=== PATIENT | male | born 1960 | race Caucasian/White ===

== ENCOUNTER 2016-10-10 23:07 | Emergency (ER) | payer OTHER ==
[~2016-10-10] VITALS: Wt 56.0 kg
[2016-10-10 23:12] VITALS: Wt 56.0 kg
[2016-10-10] MEDS ORDERED: ONDANSETRON 4 MG INJ IV STA (23:35)
[2016-10-10] MEDS ORDERED: SOD CHLORIDE 0.9% 1,000 ML IV STA (23:35)
[2016-10-10] MEDS ORDERED: FAMOTIDINE 20 MG INJ IV STA (23:35)
[2016-10-10] MEDS ORDERED: morphine 4 MG/ML VIAL IV STA (23:35)
[2016-10-11 00:19] LABS: BASOPHILS % 0.4 % (0.0-2.0); EOSINOPHILS % 0.1 % (0.0-7.0); HEMATOCRIT 34.3 % (42.0-52.0); HEMOGLOBIN 11.9 g/dl (14.0-18.0); LYMPHOCYTES # 1.1 10^3/ul (0.8-2.9); LYMPHOCYTES % 8.7 % (15.0-51.0); MEAN CORPUSCULAR HEMOGLOBIN 32.8 pg (29.0-33.0); MEAN CORPUSCULAR HGB CONC 34.8 g/dl (32.0-37.0); MEAN CORPUSCULAR VOLUME 94.2 fl (82.0-101.0); MEAN PLATELET VOLUME 7.9 fl (7.4-10.4); MONOCYTE # 0.9 10^3/ul (0.3-0.9); MONOCYTES % 6.8 % (0.0-11.0); NEUTROPHIL # 10.6 10^3/ul (1.6-7.5); PLATELET COUNT 252 10^3/UL (140-440); RED BLOOD COUNT 3.64 10^6/ul (4.70-6.10); RED CELL DISTRIBUTION WIDTH 12.4 % (11.5-14.5); UNCORRECTED WBC 12.6 10^3/ul (4.8-10.8); WHITE BLOOD COUNT 12.6 10^3/ul (4.8-10.8)
[2016-10-11 00:21] LABS: CONDITION 1
[2016-10-11 00:34] LABS: ALBUMIN 3.5 g/dl (3.3-4.9)
[2016-10-11 00:35] LABS: POTASSIUM 3.7 mmol/L (3.5-5.1)
[2016-10-11 00:36] LABS: CREATININE 1.21 mg/dl (0.61-1.24)
[2016-10-11 00:37] LABS: ALBUMIN/GLOBULIN RATIO 1.02; BILIRUBIN,INDIRECT 0.5 mg/dl (0-1.1); BILIRUBIN,TOTAL 0.5 mg/dl (0.2-1.3); CALCIUM 8.1 mg/dl (8.4-10.2); TOTAL PROTEIN 6.9 g/dl (6.1-8.1)
[2016-10-11 00:47] LABS: ADD UMIC YES; URINE BILIRUBIN (Dip) NEGATIVE (NEGATIVE); URINE BLOOD (Dip) 2+ (NEGATIVE); URINE COLOR LT. YELLOW (YELLOW); URINE GLUCOSE (Dip) NEGATIVE (NEGATIVE); URINE KETONES (Dip) TRACE (NEGATIVE); URINE LEUKOCYTE ESTERASE (Dip) 2+ (NEGATIVE); URINE NITRITE (Dip) POSITIVE (NEGATIVE); URINE TOTAL PROTEIN (Dip) 2+ (NEGATIVE); URINE UROBILINOGEN (Dip) 0.2 E.U./dL (0.1-1.0)
[2016-10-11 00:59] LABS: BACTERIA,URINE MANY
[2016-10-11] MEDS ORDERED: CEFTRIAXONE 1 GM/50 ML (PMX) 50 ML IVPB ONE (01:00)
--- NOTE | 2016-10-11 02:15 | RADRPT ---
PROCEDURE: CT ABDOMEN/PELVIS WITHOUT CONTRAST CLINICAL INDICATION: 56-year-old male with left flank pain. TECHNIQUE: The study was performed utilizing a GE SoftRunpeed VCT 64-slice CT scanner. Direct axia l sections were obtained through the abdomen and pelvis without the use of intravenous contrast mate rial. Sagittal and coronal reformations were obtained. Automated exposure control and iterative say nstruction techniques were utilized for this examination. The [facility] CTD/vol = 4.6 mGy; Total Exam DLP = 149.2 mGy-cm. COMPARISON: CT abdomen/pelvis June 08, 2014. FINDINGS: Cardiomegaly is noted. There is trace anterior pericardial effusion. There is minimal bibasilar flores bsegmental atelectasis. There is no evidence for significant pleural effusion. The liver has a norm al size and contour without focal areas of abnormal density. No intrahepatic nor extrahepatic biliar y ductal dilatation is seen. The gallbladder again noted to contain a small dependent gallstone dex uring approximately 3 x 4 mm without significant wall thickening or pericholecystic fluid. The pancr eas is without areas of abnormal attenuation. The spleen is mildly enlarged measuring 13.3 cm in le ngth but without abnormal density. The adrenal glands are unremarkable. The kidneys are without abno rmal density. No hydroureteronephrosis nor nephroureterolithiasis is evident. The urinary bladder co ntains urine. There is no evidence for bowel obstruction. There is retained contrast identified with in the distal colon. The appendix is partially visualized and is without abnormal thickening or surrounding inflammatory reaction. The prostate is not enlarged however there are small calcificatio ns within it. There is no significant free fluid. The aortoiliac vessels are without aneurysmal di latation. The osseous structures are intact. IMPRESSION: 1. Mild cardiomegaly with trace pericardial effusion. 2. Gallstone. 3. No CT evidence for obstructive uropathy or renal calculi. 4. Mild splenomegaly. 5. No CT evidence for bowel obstruction. .Dillon Glasgow MD, Date Time Electronically viewed and signed by .Dillon Glasgow MD, MD on 10/11/2016 02:14 .Roseline
--- NOTE | 2016-10-11 02:24 | ERD ---
ER Documentation Chief Complaint Date/Time DATE: 10/11/16 TIME: 02:22 Chief Complaint left side flank pain takes cipro started thu for kidney infection HPI This is a 56-year-old male presents to the emergency room for evaluation of left -sided flank pain. The patient does state he has a history of kidney infections. He is on ciprofloxacin and he started taking ciprofloxacin on Thursday, 08 October. The patient denies any fevers, came to the ER today for evaluation of his flank pain. ROS All systems reviewed and are negative except as per history of present illness. Medications Home Meds No Active Prescriptions or Reported Meds Allergies Allergies: Coded Allergies: acetaminophen (Verified Allergy, Unknown, itching, 06/08/14) PMhx/Soc Medical and Surgical Hx: pt denies Medical Hx Anesthesia Reaction: No Hx Neurological Disorder: No Hx Respiratory Disorders: No Hx Cardiac Disorders: No Hx Psychiatric Problems: No Hx Miscellaneous Medical Probl: Yes (HTN) Hx Alcohol Use: Yes (SOCIAL) Hx Substance Use: No Hx Tobacco Use: No Smoking Status: Never smoker Physical Exam Vitals Vital Signs Date Time Temp Pulse Resp B/P Pulse Ox O2 Delivery O2 Flow Rate FiO2 10/10/16 23:12 99.3 86 20 97/53 97 Physical Exam Const: No acute distress Head: Atraumatic Eyes: Normal Conjunctiva ENT: Normal External Ears, Nose and Mouth. Neck: Full range of motion..~ No meningismus. Resp: Clear to auscultation bilaterally Cardio: Regular rate and rhythm, no murmurs Abd: Left-sided CVAT, otherwise soft, non tender, non distended. Normal bowel sounds Skin: No petechiae or rashes Back: No midline or flank tenderness Ext: No cyanosis, or edema Neur: Awake and alert Psych: Normal Mood and Affect Result Diagram: 10/10/16 2345 10/10/16 2345 Results 24 hrs Laboratory Tests Test 10/10/16 23:45 10/10/16 23:59 Alanine Aminotransferase (ALT/SGPT) 36IU/L Albumin 3.5g/dl Albumin/Globulin Ratio 1.02 Alkaline Phosphatase 87IU/L Anion Gap 15 Aspartate Amino Transf (AST/SGOT) 30IU/L Basophils # 0.010^3/ul Basophils % 0.4% Blood Urea Nitrogen 18mg/dl Calcium Level 8.1mg/dl Carbon Dioxide Level 25mmol/L Chloride Level 96mmol/L Creatinine 1.21mg/dl Direct Bilirubin 0.00mg/dl Eosinophils # 0.010^3/ul Eosinophils % 0.1% Globulin 3.40g/dl Glucose Level 124mg/dl Hematocrit 34.3% Hemoglobin 11.9g/dl Indirect Bilirubin 0.5mg/dl Lipase 75U/L Lymphocytes # 1.110^3/ul Lymphocytes % 8.7% Mean Corpuscular Hemoglobin 32.8pg Mean Corpuscular Hemoglobin Concent 34.8g/dl Mean Corpuscular Volume 94.2fl Mean Platelet Volume 7.9fl Monocytes # 0.910^3/ul Monocytes % 6.8% Neutrophils # 10.610^3/ul Neutrophils % 84.0% Nucleated Red Blood Cells # 0.010^3/ul Nucleated Red Blood Cells % 0.0/100WBC Platelet Count 80995^3/UL Potassium Level 3.7mmol/L Red Blood Count 3.6410^6/ul Red Cell Distribution Width 12.4% Sodium Level 132mmol/L Total Bilirubin 0.5mg/dl Total Protein 6.9g/dl White Blood Count 12.610^3/ul Urine Bacteria MANY Urine Bilirubin NEGATIVE Urine Clarity TURBID Urine Color LT. YELLOW Urine Glucose NEGATIVE% Urine Hemoglobin 2+ Urine Ketones TRACE Urine Leukocyte Esterase 2+ Urine Microscopic RBC 5-10/HPF Urine Microscopic WBC >200/HPF Urine Nitrite POSITIVE Urine Specific Occidental 1.025 Urine Total Protein 2+ Urine Urobilinogen 0.2 E.U./dL Urine pH 6.0 Current Medications Medications (Trade) Dose Ordered Sig/Francisco Route PRN Reason Start Time Stop Time Status Last Admin Dose Admin Sodium Chloride (NS) 1,000 ml @ 1,000 mls/hr Q1H STAT IV 10/10/16 23:35 10/11/16 00:34 DC 10/10/16 23:54 Morphine Sulfate (morphine) 4 mg ONCE STAT IV 10/10/16 23:35 10/10/16 23:37 DC 10/10/16 23:55 Ondansetron HCl (Zofran Inj) 4 mg ONCE STAT IV 10/10/16 23:35 10/10/16 23:37 DC 10/10/16 23:55 Famotidine 20 mg 20 mg ONCE STAT IV 10/10/16 23:35 10/10/16 23:37 DC 10/10/16 23:55 Ceftriaxone Sodium (Rocephin) 50 ml @ 100 mls/hr ONCE ONCE IVPB 10/11/16 01:00 10/11/16 01:29 DC 10/11/16 01:12 Procedures/MDM CT abdomen pelvis without: 1. Mild cardiomegaly with trace pericardial effusion. 2. Gallstone. 3. No CT evidence for obstructive uropathy or renal calculi. 4. Mild splenomegaly. 5. No CT evidence for bowel obstruction. This is a 56-year-old male presents to the emergency room for evaluation of left -sided flank pain. I did obtain blood work and a urinalysis which does reveal acute cystitis with a slight leukocytosis. This patient does have greater than 200 white blood cells in his urine. Urine culture was obtained. The patient was given Rocephin here in the emergency room. He is on ciprofloxacin, given the fact that he still has white blood cells in his urine I will change his antibiotic to Bactrim. The patient will be given Bactrim at this time and will be discharged home with a prescription for Bactrim for the course of 2 weeks. He will also be given Motrin for flank pain. Departure Diagnosis: Primary Impression: Pyelonephritis Additional Impressions: Normocytic anemia Hyponatremia Condition: Stable SHERYL HUITRON DO Oct 11, 2016 02:24
[2016-10-11] MEDS ORDERED: IBUP800T25 PO (02:25)
[2016-10-11] MEDS ORDERED: BACTDS PO (02:25)
[2016-10-11 02:41] VITALS: BP 97/61; PULSE 80; RESP 18
== END 2016-10-11 02:41 | disposition home or self-care (01) ==
LOC: E/R 23:07
DX: N12 Tubulo-interstitial nephritis, not specified as acute or chronic (principal); E87.1 Hypo-osmolality and hyponatremia; D64.9 Anemia, unspecified; I10 Essential (primary) hypertension
CPT/HCPCS: 36415; 74176; 80053; 81001; 83690; 85025; 87086; 96374; 96375; J0696; J2270; J2405; J7030; Z7502; Z7610; 81003